=== PATIENT | male | born 1945 | race Caucasian/White ===

== ENCOUNTER 2020-09-07 08:00 | Emergency (ER) | payer OTHER ==
[~2020-09-07] VITALS: Ht 170.2 cm; Wt 120.7 kg
[2020-09-07 08:12] VITALS: Ht 170.2 cm; Wt 120.7 kg
[2020-09-07 11:00] VITALS: BP 144/60
== END 2020-09-07 09:08 | disposition home or self-care (01) ==
LOC: ED 08:00
DX: L25.9 Unspecified contact dermatitis, unspecified cause (principal); E11.9 Type 2 diabetes mellitus without complications